=== PATIENT | female | born 1980 | race Caucasian/White ===

== ENCOUNTER 2024-12-12 09:04 | Emergency (ER) | payer BC ==
[2024-12-12] MEDS: Rabies Vaccine (Avian) 2.5 Unit Inj Kit IM ONE (10:23)
[2024-12-12] MEDS: Rabies Immune Globulin/PF (HyperRAB) 300 UNIT/ML 5 ML SDV IM ONE (10:26)
== END 2024-12-12 11:12 ==
LOC: JP.ED 09:04
DX: Z23 Encounter for immunization (principal)
CPT/HCPCS: 90375; 90471; 90675; 96372; 99283-25